=== PATIENT | female | born 1940 | race Caucasian/White ===

== ENCOUNTER 2022-07-01 18:56 | Emergency (ER) | payer MEDICARE, SELFPAY ==
[2022-07-01] VITALS (10 sets, daily range): BP systolic 114–136; BP diastolic 68–86; PULSE 64–126; RESP 16–28; TEMP 36.8; O2SAT 96–100
--- NOTE | ~2022-07-01 | CT_ITS ---
EXAMINATION: CT brain wo con DATE: 07/01/2022 20:20 INDICATION: dizziness . TECHNIQUE: Computed tomography (CT) of the head was performed without intravenous contrast. The mA wa s adjusted according to patient size. Iterative reconstruction technique was employed. The dose-lengt h product was 605.33 mGy-cm. COMPARISON: None. FINDINGS: No acute intracranial hemorrhage or extra-axial fluid collection. No hydrocephalus, mass, or herniation. No acute ischemic infarct. Unremarkable dural venous sinus attenuation. No acute osseous abnormality. The aerated spaces are clear. Moderate atrophy and chronic white matter change. Atherosclerotic intracranial calcification. Focal b ilateral old basal ganglia lacunar infarcts. Focal old right pontine infarct. Bilateral lens replacem ents. IMPRESSION: No acute intracranial process. Reviewed, dictated and finalized at location K.
--- NOTE | ~2022-07-01 | CT_ITS ---
EXAMINATION: CT abdomen pelvis w con DATE: 07/01/2022 20:27 INDICATION: abdominal pain TECHNIQUE: Computed tomography (CT) of the abdomen and pelvis was performed with 100 mL Omnipaque-350 intravenous contrast. Automated exposure control and iterative reconstruction technique were employe d. The dose-length product was 226.62 mGy-cm. COMPARISON: None. FINDINGS: Lower thorax: Emphysematous/senescent changes. Liver: Cyst or hemangioma along the falciform ligament. Biliary/Gallbladder: Gallbladder is normal. No bile duct dilation. Pancreas: Prominent pancreatic duct. Mild atrophy. Field bile duct mild intra and active hepatic duct dilation Spleen: Normal. Adrenals:No mass. Kidneys: Right nephrolithiasis. Bilateral cortical thinning and scarring. Simple left lower pole cyst . GI tract: No small or large bowel dilation. Normal appendix. Diverticulosis without diverticulitis. Mesentery/Peritoneum: No ascites, mass, or free air. Retroperitoneum: No mass. Atherosclerotic abdominal aortic and/or arterial calcifications. 4.1 cm fus iform infrarenal abdominal aortic aneurysm, with intramural ulcerative thrombus. Pelvis: Pelvic organs partially obscured by metal artifact. Uterus likely surgically absent. Soft Tissues: Mild body wall edema Bones: No acute osseous finding. Uncomplicated appearing left hip arthroplasty. IMPRESSION: Mild intrahepatic and extra hepatic bile duct dilation, correlate with biliary labs. 4.1 cm abdominal aortic aneurysm with intramural thrombus and penetrating ulcers. Reviewed, dictated and finalized at location K.
--- NOTE | ~2022-07-01 | XR_ITS ---
EXAMINATION: XR chest 2V Exam Date/Time: 07/01/2022 19:45 CDT HISTORY: SOB/cough, DIZZINESS Comparison: None available. RESULT: Lines, tubes, and devices: Left chest pacer with intact leads. Lungs and pleura: Biapical pleural scarring. Severe emphysematous and senescent change. Cardiomediastinal silhouette: Prominent central pulmonary arteries as can be seen with pulmonary art erial hypertension. Other: No acute osseous or upper abdominal finding. IMPRESSION: No acute cardiopulmonary process. Reviewed, dictated and finalized at location K.
--- NOTE | 2022-07-01 19:02 | ECG_ITS ---
Measurements Intervals [place] Rate: 130 P: [place]: 0 QRS: -31 QRSD: 91 T: 71 QT: 301 QTc: 443 Interpretive Statements ATRIAL FIBRILLATION WITH RAPID VENTRICULAR RESPONSE MARKED LEFT AXIS DEVIATION [QRS AXIS < -30] MODERATE ST DEPRESSION [0.05+ mV ST DEPRESSION] NO PREVIOUS ECG AVAILABLE FOR COMPARISON Electronically Signed On 07-02-2022 17:59:23 CDT by Elizabeth Salvador M.D.
[2022-07-01 19:52] LABS: Basophils Absolute Auto 0.1 K/mm3 (0.0-0.1); Basophils Percent Auto 0.7 % (0.2-1.2); Eosinophils Absolute Auto 0.1 K/mm3 (0-0.3); Hematocrit 36.4 % (37.0-47.0); Hemoglobin 11.6 g/dL (12.0-15.0); Immature Granulocyte Absolute 0.02 K/mm3 (0.00-0.031); Immature Granulocyte Percent A 0.3 % (0-0.5); Lymphocytes Absolute Auto 1.21 K/mm3 (0.9-3.2); Lymphocytes Percent Auto 17.1 % (18.3-44.2); Mean Corpuscular HGB Conc 31.9 g/dl (32-36); Mean Corpuscular Volume 100.6 fl (80-100); Mean Platelet Volume 9.5 fl (7.4-10.4); Monocytes Absolute Auto 0.6 K/mm3 (0.1-0.6); Monocytes Percent Auto 8.9 % (2.6-8.5); Platelet Count Result 148 k/mm3 (150-375); Red Blood Count 3.62 M/mm3 (4.2-5.4); Red Cell Distribution Width 13.4 % (11.5-14.5); White Blood Count 7.1 K/mm3 (4.5-10.0)
[2022-07-01 20:03] LABS: INR 1.2; Prothrombin Time 14.7 Seconds (11.1-14.7)
[2022-07-01 20:06] LABS: Alanine Aminotransferase 12 U/L (6-35); Albumin Level 3.9 g/dL (3.5-5.1); Alkaline Phosphatase 60 U/L (38-126); Anion Gap 4 mmol/L (8-16); Aspartate Amino Transferase 21 U/L (14-36); Bilirubin,Total 0.5 mg/dL (0.2-1.3); Blood Urea Nitrogen 19 mg/dL (7-17); Carbon Dioxide 28 mmol/L (22-30); Chloride 105 mmol/L (98-107); Estimated CRCL calculation 34 ml/min; Estimated Glomerular Filt Rate > 60; Glucose 95 mg/dL (65-110); Lipase 79 U/L (23-300); Potassium 4.1 mmol/L (3.4-5.0); Sodium 137 mmol/L (137-145)
[2022-07-01] MEDS: SODIUM CHLORIDE 0.9% IV 1,000 ML 150 ML IV CONT (20:09)
[2022-07-01 20:22] LABS: Appearance Urine Cloudy (Clear); Bacteria Urine Rare /hpf; Bilirubin Urine Negative (Negative); Blood Urine Negative (Negative); Color Urine Yellow (Yellow); Glucose Urine UA Negative (Negative); Ketones Urine Negative (Negative); Leukocyte Esterase Ur 2+ LEU/UL (Negative); Nitrate Urine Negative (Negative); Non Pathogenic Casts 0-2; Protein Urine Negative (Negative); Specific Grav Ur 1.014 (1.001-1.035); Squamous Epithelial Cell Urine Many /hpf (Few); WBC Urine 21-50 /hpf
[2022-07-01 20:30] LABS: Add Urine Microscopic? YES
[2022-07-01 20:31] LABS: D Dimer 0.79 ug/mL (<0.48)
--- NOTE | 2022-07-01 21:20 | ED.DIZZY ---
HPI - Dizziness General Chief Complaint: Dizziness Stated Complaint: dizzy/weak/abd pain/SOB Time Seen by Provider: 07/01/22 19:24 Source: patient and family Mode of arrival: ambulatory Limitations: no limitations History of Present Illness HPI Narrative: 82-year-old with a history of A-fib on Eliquis s/p pacemaker here with complaints of dizziness which has been ongoing for past 4 weeks. Patient states every morning when she gets up she gets dizzy followed by nausea and abdominal pain. She is denies any vomiting or diarrhea. No history of fever or chills. She denies any chest pain. MD elicited complaint: dizziness Onset (ago): week(s) (4-5 ) Timing: gradual onset Severity: moderate Description: lightheadedness Context: change in body position Relieving factors: nothing Associated symptoms: nausea Related Data Allergies Allergy/AdvReac Type Severity Reaction Status Date / Time codeine AdvReac Unknown Nausea and Verified 12/28/15 12:31 Vomiting Review of Systems Review of Systems: All systems reviewed & are unremarkable except as noted in HPI and below Constitutional: Constitutional: Reports no additional constitutional complaints Eyes: Eyes: Reports no additional eye complaints ENT: Reports system reviewed and no additional complaints, except as documented Cardiovascular: Cardiovascular: Reports no additional cardiovascular complaints Respiratory: Respiratory: Reports no additional respiratory complaints Gastrointestinal: Gastrointestinal: Reports as per HPI Musculoskeletal: Musculoskeletal: Reports no additional musculoskeletal complaints Neurologic: Reports as per HPI Exam Narrative: GENERAL: Well-appearing, thin and frail, and in no acute distress. HEAD: Normocephalic, atraumatic. EYES: PERRLA and EOMI. ENT: Nares clear, no rhinorrhea or epistaxis. Mucous membranes moist. NECK: Supple. CHEST: Clear to auscultation. No respiratory distress. HEART: Tachycardic. ABDOMEN: Soft, nontender, nondistended, pulsatile mass, normal active bowel sounds. EXTREMITIES: Normal range of motion. No edema. SKIN: Warm, dry, no rash. NEURO: No focal deficits. Alert and oriented x3. PSYCH: Normal mood and affect. Course Course Emergency Course: Notified patient and the family about her lab work, CT scan findings. I discussed with vascular surgery at [place] Dr. Abbott who looked at the CT report images, patient does not need immediate surgery or intervention. Can be followed up in the office or in the ER.I did give the pt an option of going to the ER or follow up in the office . i recommended her to follow with Dr. Bonds Vital Signs Vital signs: Vital Signs Temperature 36.8 C 07/01/22 19:06 Pulse Rate 126 H 07/01/22 19:06 Respiratory Rate 18 07/01/22 19:06 Blood Pressure 114/68 07/01/22 19:06 Pulse Oximetry 96 07/01/22 19:06 Oxygen Delivery Room Air 07/01/22 19:06 Temperature 36.8 C 07/01/22 19:06 Pulse Rate 120 H 07/01/22 20:58 Respiratory Rate 22 H 07/01/22 20:45 Blood Pressure 114/68 07/01/22 19:06 Pulse Oximetry 100 07/01/22 20:45 Oxygen Delivery Room Air 07/01/22 19:06 MDM - Dizziness MDM Narrative Medical decision making narrative: 82-year-old with a history of A-fib s/p pacemaker 4 to 5-week history of dizziness mostly in the morning associated with mild nausea and abdominal pain will do CT of the head and abdomen and lab work and EKg Differential Diagnosis Differential diagnosis: Likely benign paroxysmal positional vertigo, vertebral basilar insufficiency and cerebrovascular accident Lab Data 07/01/22 19:45 07/01/22 19:45 Labs: Lab Results 07/01/22 07/01/22 07/01/22 Range/Units 19:45 19:45 19:45 WBC 7.1 (4.5-10.0) K/mm3 RBC 3.62 L (4.2-5.4) M/mm3 Hgb 11.6 L (12.0-15.0) g/dL Hct 36.4 L (37.0-47.0) % MCV 100.6 H (80-100) fl MCH 32.0 (26-34) pg MCHC 31.9 L (32-36) g/dl RDW 13.4 (11
== END 2022-07-01 22:44 | disposition home or self-care (01) ==
PROVIDERS: Emergency Medicine; Emergency Provider Family Medicine; PCP Family Medicine Sports Medicine
DX: I71.43 Infrarenal abdominal aortic aneurysm, without rupture (principal); R42 Dizziness and giddiness; I48.91 Unspecified atrial fibrillation; Z95.0 Presence of cardiac pacemaker; Z79.01 Long term (current) use of anticoagulants; R94.31 Abnormal electrocardiogram [ECG] [EKG]; R93.2 Abnormal findings on diagnostic imaging of liver and biliary tract; R82.998 Other abnormal findings in urine
CPT/HCPCS: 36415; 70450; 71046; 74177; 80053; 81001; 83690; 85025; 85380; 85610; 87086; 87088; 93005; 96360; 96361; 99284; J7030; Q9967

== ENCOUNTER 2022-07-21 15:03 | Outpatient (CLI) | payer MEDICARE, SELFPAY ==
--- NOTE | ~2022-07-21 | CT_ITS ---
EXAMINATION: CT abdomen pelvis w con DATE: 07/21/2022 16:02 INDICATION: Intra and extra hepatic biliary ductal dilation TECHNIQUE: Computed tomography (CT) of the abdomen and pelvis was performed with 100 mL Omnipaque-350 intravenous contrast. Automated exposure control and iterative reconstruction technique were employe d. The dose-length product was 253.38 mGy-cm. COMPARISON: 07/01/2022 FINDINGS: Emphysema the lung bases. Calcified nodule right middle lobe consistent with old granulomatous diseas e. Heart size is normal. No pericardial or pleural effusion. Dual lead cardiac pacemaker with lead ti ps at the right atrial appendage and at the apex of the right ventricle. Unchanged 1.5 cm low-attenua tion cyst versus hemangioma along the ligamentum teres. Common bile duct measures up to 7-8 mm in max imal diameter which is within normal limits for age. No intrahepatic biliary ductal dilation. Small a mount of gas and fluid within a duodenal diverticulum arising from second portion duodenum posterior to the distalmost common bile duct. Gallbladder, spleen, pancreas, bilateral adrenal glands are macrina l. Again seen are regions of cortical scarring at both kidneys. 1-2 mm nonobstructing stone at an upp er pole calyx of the right kidney. There is also a 1.1 cm low-attenuation cyst at the lower pole of t he left kidney. Portions of the inferior pelvis are obscured by metallic streak artifact related to a left total hip arthroplasty. Visualized portion of the decompressed bladder is unremarkable. The yeison armando is not identified and has likely been surgically resected. There are scattered colonic diverticul osis without adjacent inflammatory stranding to suggest diverticulitis. No bowel obstruction. Normal appendix. No free intraperitoneal gas or fluid. No pathologically enlarged abdominal or pelvic lympha denopathy. Fusiform infrarenal abdominal aortic aneurysm measuring up to 4.4 x 3.9 cm in maximal diam eter measured orthogonal to the axis of flow on coronal and sagittal images respectively. Moderate lo wer lumbar spondylosis. IMPRESSION: 1. Common bile duct measures up to 7-8 mm in maximal diameter which is within normal limits for age. No intrahepatic biliary ductal dilation. 2. 4.4 x 3.9 cm fusiform infrarenal abdominal aortic aneurysm. 3. Question 2 mm nonobstructing stone in upper pole calyx of the right kidney. Reviewed, dictated and finalized at location B. IMPRESSION: 1. Common bile duct measures up to 7-8 mm in maximal diameter which is within n ormal limits for age. No intrahepatic biliary ductal dilation. 2. 4.4 x 3.9 cm fusiform infrarenal abdominal aortic aneurysm. 3. Question 2 mm nonobstructing stone in upper pole calyx of the right kidney.
== END 2022-07-21 15:04 | disposition home or self-care (01) ==
PROVIDERS: PCP Family Medicine Sports Medicine; Visit Provider Nurse Practitioner
DX: R19.8 Other specified symptoms and signs involving the digestive system and abdomen (principal); I71.40 Abdominal aortic aneurysm, without rupture, unspecified
CPT/HCPCS: 74177; Q9967

== ENCOUNTER 2022-07-30 06:46 | Day surgery (SDC) | payer MEDICARE, SELFPAY ==
[2022-07-23 14:23] VITALS: BMI 16.5
[2022-07-30 09:53] VITALS: BP 165/91; PULSE 81; RESP 18; TEMP 36.3; O2SAT 99; BMI 16.1
[2022-07-30] MEDS: LACTATED RINGERS 1,000 ML 150 ML IV CONT (10:06)
--- NOTE | 2022-07-30 10:20 | WPDANESEPPF ---
Anes - Initial Pre Proc Eval Procedure: Operation Date: 07/30/22 11:00 Proposed Procedures p Esophagogastroduodenoscopy - Eliesre Madden MD Date/Time: 07/30/22 10:20 Surgeon: Elieser Madden MD Pre Op Diagnosis: RUQP, nausea Patient Data Age: 82 Gender: F Height: 1.68 m Weight: 45.3 kg Last Vital Signs Temp 97.4 F L 07/30/22 09:53 Pulse 81 07/30/22 09:53 Resp 18 07/30/22 09:53 BP 165/91 H 07/30/22 09:53 Pulse Ox 99 07/30/22 09:53 O2 Del Method Room Air 07/30/22 09:53 Allergies Allergy/AdvReac Type Severity Reaction Status Date / Time codeine AdvReac Intermediate Nausea and Verified 07/30/22 09:51 Vomiting Home Medications Medication Instructions Recorded Confirmed Type apixaban 5 mg tablet 5 mg PO BID 07/07/22 07/30/22 History denosumab 60 mg/mL subcutaneous 60 mg subcut [id number] 07/07/22 07/30/22 History syringe (Prolia) ondansetron 4 mg disintegrating 4 mg PO Q8H PRN Nausea And Vomiting 07/07/22 07/30/22 History tablet sertraline 25 mg tablet 25 mg PO DAILY 07/07/22 07/30/22 History sotalol 80 mg tablet 40 mg PO BID 07/07/22 07/30/22 History wgnhef-ctopjlvk-tpoxpsr 2 cap PO .COMPLEX #240 caps 07/15/22 07/30/22 Rx 36,000-114,000-180,000 unit capsule,delay rel (Creon) metoprolol tartrate 25 mg tablet 25 mg PO BID 07/23/22 07/30/22 History Patient hx anesthesia problems: none Family hx anesthesia problems: none Results Review: All pre-operative results and documents have been reviewed as part of the pre-operative evaluation. 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 DAY PAST 1-2 YRS Alcohol intake: current Substance use: former Living arrangements: with family Spiritual care concerns: No Anes - Eval Final PreProcedure Day of Procedure 07/30/22 10:20 Patient weight: normal Heart: regular rate and rhythm Lungs: clear to auscultation Airway: Mallampati scale class II Neurological: alert and oriented Last oral intake: >/= 8 hours ASA classification: III Emergent: no Anesthetic plan: proceed Anesthesia type and monitoring: general GIVS and standard monitoring Results Review: All pre-operative results and documents have been reviewed as part of the pre-operative evaluation. Informed Consent: The patient's anesthetic plan and its attendant risks and benefits were discussed with the patient/family/POA. Questions were solicited and answers provided to the satisfaction of the patient/family/POA.
--- NOTE | 2022-07-30 10:46 | WPDHPUPDATE1 ---
History and Physical Update Update Date/Time: 07/30/22 10:46 History and Physical has been reviewed, including an updated exam of the patient. There are NO changes in the patient's condition. Risks, benefits, and alternatives have been discussed and questions answered. Patient agrees to proceed with procedure.
[2022-07-30 11:00] VITALS: BP 119/68; PULSE 80; RESP 17; O2SAT 94
[2022-07-30 11:10] VITALS: BP 126/74; PULSE 75; RESP 23; O2SAT 99
[2022-07-30 11:20] VITALS: BP 148/86; PULSE 80; RESP 21; O2SAT 99
== END 2022-07-30 11:30 | disposition home or self-care (01) ==
PROVIDERS: PCP Family Medicine Sports Medicine; Visit Provider Internal Medicine Gastroenterology
PROC: 0DJ08ZZ Inspection of Upper Intestinal Tract, Via Natural or Artificial Opening Endoscopic (ICD-10-PCS; CPT 43235; principal; 2022-07-30 11:00)
DX: K44.9 Diaphragmatic hernia without obstruction or gangrene (principal); K29.70 Gastritis, unspecified, without bleeding; I71.40 Abdominal aortic aneurysm, without rupture, unspecified; I48.91 Unspecified atrial fibrillation; F41.8 Other specified anxiety disorders; I10 Essential (primary) hypertension; Z86.73 Personal history of transient ischemic attack (TIA), and cerebral infarction without residual deficits; Z95.0 Presence of cardiac pacemaker; Z79.01 Long term (current) use of anticoagulants; Z79.620 Long term (current) use of immunosuppressive biologic; F17.210 Nicotine dependence, cigarettes, uncomplicated
CPT/HCPCS: 43235; 87081; 88305; J2704; J7120

== ENCOUNTER 2022-08-07 10:50 | Emergency (ER) | payer MEDICARE, SELFPAY ==
--- NOTE | ~2022-08-07 | CT_ITS ---
EXAMINATION: CT abdomen pelvis w con DATE: 08/07/2022 11:55 INDICATION: Recent ulcers. Diffuse lower abdominal pain and tenderness. TECHNIQUE: Computed tomography (CT) of the abdomen and pelvis was performed with 98 cc Omnipaque 350 intravenous contrast. The dose-length product was 185.86 mGy-cm. Automated exposure control and iterative reconstruction technique were employed. COMPARISON: CT dated 07/21/2022. FINDINGS: Lung bases are unremarkable. No significant pleural or pericardial effusion. Heart size is normal. There is hepatomegaly. The spleen, pancreas, adrenal glands are unremarkable. There is bilate ral renal cortical thinning. There is a nonobstructing 4 mm right renal stone. Gallbladder is present . There is a left hip arthroplasty. 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 There is moderate lumba r spondylosis with retrolisthesis at L4-5. There is a fusiform infrarenal abdominal aortic aneurysm m easuring 4.5 x 3.7 cm. No free air or free fluid. No lymphadenopathy. IMPRESSION: 1. Infrarenal abdominal aortic aneurysm measuring 4.5 x 3.7 cm. 2: Nonobstructing right nephrolithiasis. Reviewed, dictated and finalized at location L.
[2022-08-07 11:02] VITALS: BP 143/78; PULSE 70; RESP 16; TEMP 36.8; O2SAT 98
--- NOTE | 2022-08-07 11:08 | ED.ABDPAIN ---
HPI - Abdominal Pain General Chief Complaint: Abdominal Pain Stated Complaint: abd pain Time Seen by Provider: 08/07/22 11:00 History of Present Illness HPI narrative: Patient is an 82-year-old female with a history of AAA and gastric ulcers seen on recent EGD here for evaluation of abdominal pain x2 months. Patient states the pain is described as a soreness in her lower abdomen. Reports some nausea but no vomiting. Has been seen by GI and had an endoscopy done not too long ago that showed 3 gastric ulcers. She has been taking her omeprazole for the past week but states that her pain has not improved much. Presents today due to chronicity of symptoms. No dysuria, urgency or frequency. Related Data Home Medications Medication Instructions Recorded Confirmed apixaban 5 mg tablet 5 mg PO BID 07/07/22 07/30/22 denosumab 60 mg/mL subcutaneous 60 mg subcut [id number] 07/07/22 07/30/22 syringe (Prolia) ondansetron 4 mg disintegrating 4 mg PO Q8H PRN Nausea And Vomiting 07/07/22 07/30/22 tablet sertraline 25 mg tablet 25 mg PO DAILY 07/07/22 07/30/22 sotalol 80 mg tablet 40 mg PO BID 07/07/22 07/30/22 metoprolol tartrate 25 mg tablet 25 mg PO BID 07/23/22 07/30/22 Allergies Allergy/AdvReac Type Severity Reaction Status Date / Time codeine AdvReac Intermediate Nausea and Verified 07/30/22 09:51 Vomiting Review of Systems Review of Systems: Gen.: Denies fevers or chills Eyes: Denies eye pain or visual change ENT: Denies congestion Respiratory: Denies shortness of breath or cough CV: Denies chest pain or palpitations GI: Reports abdominal pain denies burning, urgency, frequency or hematuria Musculoskeletal: Denies back pain or muscle pain Neuro: Denies numbness, tingling, weakness or focal weakness Skin: Denies rash Except as documented, all other systems reviewed and negative [facility] Past Medical History Medical History AAA (abdominal aortic aneurysm) without rupture Afib Depression with anxiety Dilation of biliary tract Fatigue Hx of stroke associated with blood clotting tendency 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 DAY PAST 1-2 YRS Alcohol intake: current Substance use: former Living arrangements: with family Spiritual care concerns: No Exam Narrative: APPEARANCE: Well appearing, no pain in distress, well-nourished. Head: Normocephalic and atraumatic. EYES: PERRLA/EOMI, conjunctivae clear NOSE: No nasal drainage EARS: External ear normal in appearance THROAT: Oropharynx is clear. Mucous membranes are moist. NECK: Supple. No adenopathy, no masses. RESPIRATORY: Airway patent, respirations nonlabored. Clear to auscultation bilaterally, no rales, rhonchi, wheezing. CARDIOVASCULAR: Regular rate and rhythm without murmurs, rubs, or gallops. ABDOMINAL: There is no abdominal tenderness on exam. No rebound or guarding. MUSCULOSKELETAL: Extremities are warm and well-perfused. Moves all extremities well. No edema. NEURO: Normal speech. No focal neurologic deficits. SKIN: Skin is warm and dry. No rashes. PSYCHIATRIC: Normal affect/mood.. Course Vital Signs Vital signs: Vital Signs Temperature 98.3 F 08/07/22 11:02 Pulse Rate 70 08/07/22 11:02 Respiratory Rate 16 08/07/22 11:02 Blood Pressure 143/78 H 08/07/22 11:02 Pulse Oximetry 98 08/07/22 11:02 Oxygen Delivery Room Air 08/07/22 11:02 Temperature 98.3 F 08/07/22 11:02 Pulse Rate
[2022-08-07] MEDS: BELLADONNA ALK/PHENOB ELIX 10 ML, MAG HYDROX/ALUMINUM HYD/SIMETH 30 ML, LIDOCAINE HCL 2... PO (11:23)
[2022-08-07 11:26] LABS: Basophils Absolute Auto 0.1 K/mm3 (0.0-0.1); Basophils Percent Auto 0.8 % (0.2-1.2); Eosinophils Absolute Auto 0.1 K/mm3 (0-0.3); Hematocrit 37.3 % (37.0-47.0); Immature Granulocyte Absolute 0.03 K/mm3 (0.00-0.031); Immature Granulocyte Percent A 0.5 % (0-0.5); Lymphocytes Absolute Auto 1.06 K/mm3 (0.9-3.2); Lymphocytes Percent Auto 16.3 % (18.3-44.2); Mean Corpuscular HGB Conc 32.2 g/dl (32-36); Mean Corpuscular Hemoglobin 31.6 pg (26-34); Mean Corpuscular Volume 98.2 fl (80-100); Mean Platelet Volume 10.1 fl (7.4-10.4); Monocytes Absolute Auto 0.6 K/mm3 (0.1-0.6); Monocytes Percent Auto 8.7 % (2.6-8.5); Neutrophils Absolute Auto 4.7 K/mm3 (1.3-6.7); Neutrophils Percent Auto 71.7 % (45.5-73.1); Platelet Count Result 173 k/mm3 (150-375); Red Cell Distribution Width 14.2 % (11.5-14.5); White Blood Count 6.5 K/mm3 (4.5-10.0)
[2022-08-07 11:30] VITALS: BP 177/92; PULSE 81; O2SAT 97
[2022-08-07 11:31] LABS: Lactic Acid Reflex 0.9 mmol/L (0.7-2.0)
[2022-08-07 11:33] LABS: Alanine Aminotransferase 13 U/L (6-35); Albumin Level 3.8 g/dL (3.5-5.1); Alkaline Phosphatase 56 U/L (38-126); Anion Gap 3 mmol/L (8-16); Aspartate Amino Transferase 24 U/L (14-36); Bilirubin,Total 0.4 mg/dL (0.2-1.3); Blood Urea Nitrogen 24 mg/dL (7-17); Calcium 8.5 mg/dL (8.4-10.2); Carbon Dioxide 32 mmol/L (22-30); Chloride 102 mmol/L (98-107); Estimated CRCL calculation 33 ml/min; Estimated Glomerular Filt Rate > 60; Glucose 103 mg/dL (65-110); Lipase 116 U/L (23-300); Potassium 4.1 mmol/L (3.4-5.0); Sodium 137 mmol/L (137-145)
[2022-08-07 12:15] VITALS: BP 135/67; PULSE 80; O2SAT 99
[2022-08-07 13:00] VITALS: BP 159/82; PULSE 80; RESP 18; O2SAT 97
== END 2022-08-07 13:02 | disposition home or self-care (01) ==
PROVIDERS: Emergency Provider Physician Assistant; PCP Family Medicine Sports Medicine
DX: K29.70 Gastritis, unspecified, without bleeding (principal); I71.43 Infrarenal abdominal aortic aneurysm, without rupture; I48.91 Unspecified atrial fibrillation; I10 Essential (primary) hypertension; E07.9 Disorder of thyroid, unspecified; F41.8 Other specified anxiety disorders; F17.210 Nicotine dependence, cigarettes, uncomplicated; Z95.0 Presence of cardiac pacemaker; Z86.73 Personal history of transient ischemic attack (TIA), and cerebral infarction without residual deficits; N20.0 Calculus of kidney
CPT/HCPCS: 36415; 74177; 80053; 83605; 83690; 85025; 99284; A9270; Q9967

== ENCOUNTER 2022-10-07 21:43 | Emergency (ER) | payer MEDICARE, SELFPAY ==
--- NOTE | ~2022-10-07 | XR_ITS ---
EXAMINATION: XR chest 2V Exam Date/Time: 10/07/2022 22:00 CDT HISTORY: SOB Comparison: 07/01/2022. RESULT: Lines, tubes, and devices: Left chest pacer with intact leads. Lungs and pleura: Severe emphysematous change, biapical pleural scarring, otherwise clear. Cardiomediastinal silhouette: Stable. Other: No acute osseous or upper abdominal finding. IMPRESSION: No acute cardiopulmonary process. Reviewed, dictated and finalized at location K.
[2022-10-07 21:40] VITALS: BP 173/97; PULSE 91; RESP 18; TEMP 36.5; O2SAT 99
--- NOTE | 2022-10-07 21:44 | ECG_ITS ---
Measurements Intervals [place] Rate: 84 P: 90 OR: 218 QRS: -40 QRSD: 94 T: 55 QT: 372 QTc: 441 Interpretive Statements ELECTRONIC ATRIAL PACEMAKER LEFT AXIS DEVIATION CANNOT RULE OUT SEPTAL INFARCT, AGE INDETERMINATE BASELINE ARTIFACT- I, III, AVL, AVF, V6 ABNORMAL ECG COMPARED TO ECG 07/01/2022 19:15:23 MYOCARDIAL INFARCT FINDING NOW PRESENT Electronically Signed On 10-08-2022 6:51:41 CDT by Aston Sparrow D.O.
[2022-10-07 22:12] LABS: Basophils Absolute Auto 0.1 K/mm3 (0.0-0.1); Basophils Percent Auto 0.8 % (0.2-1.2); Eosinophils Absolute Auto 0.2 K/mm3 (0-0.3); Eosinophils Percent Auto 3.1 % (0-4.4); Hematocrit 37.6 % (37.0-47.0); Hemoglobin 12.1 g/dL (12.0-15.0); Immature Granulocyte Absolute 0.02 K/mm3 (0.00-0.031); Immature Granulocyte Percent A 0.3 % (0-0.5); Lymphocytes Percent Auto 19.9 % (18.3-44.2); Mean Corpuscular HGB Conc 32.2 g/dl (32-36); Mean Corpuscular Hemoglobin 31.8 pg (26-34); Mean Corpuscular Volume 98.9 fl (80-100); Monocytes Absolute Auto 0.8 K/mm3 (0.1-0.6); Monocytes Percent Auto 10.4 % (2.6-8.5); Neutrophils Absolute Auto 4.9 K/mm3 (1.3-6.7); Neutrophils Percent Auto 65.5 % (45.5-73.1); Platelet Count Result 183 k/mm3 (150-375); Red Cell Distribution Width 13.3 % (11.5-14.5); White Blood Count 7.5 K/mm3 (4.5-10.0)
[2022-10-07 22:23] LABS: Alanine Aminotransferase 19 U/L (6-35); Albumin Level 3.9 g/dL (3.5-5.1); Alkaline Phosphatase 62 U/L (38-126); Anion Gap 4 mmol/L (8-16); Aspartate Amino Transferase 31 U/L (14-36); Bilirubin,Total 0.5 mg/dL (0.2-1.3); Blood Urea Nitrogen 23 mg/dL (7-17); Calcium 9.1 mg/dL (8.4-10.2); Carbon Dioxide 33 mmol/L (22-30); Chloride 101 mmol/L (98-107); Estimated CRCL calculation 33 ml/min; Estimated Glomerular Filt Rate > 60; Glucose 98 mg/dL (65-110); Potassium 3.4 mmol/L (3.4-5.0); Sodium 138 mmol/L (137-145)
[2022-10-07 22:49] LABS: NT Pro B Type Natriuretic Pept 1330 pg/mL (19.9-100); Troponin I < 0.012 ng/mL (0.000-0.034)
--- NOTE | 2022-10-07 23:05 | PC.NURSE ---
Report given to JAMISON Phillips
[2022-10-07 23:58] VITALS: BP 123/78; PULSE 94; RESP 16; O2SAT 95
[2022-10-08 01:17] LABS: Troponin I < 0.012 ng/mL (0.000-0.034)
--- NOTE | 2022-10-08 01:24 | ED.GENADULT ---
HPI - General Adult General Chief complaint: Shortness of Breath/Dyspnea Stated complaint: DIFFICULTY IN BREATHING Time Seen by Provider: 10/07/22 22:07 History of Present Illness HPI narrative: Patient 82-year-old female who presents emergency department with chief complaint of shortness of breath. Patient reports that this evening she started getting very short of breath EMS was called and they noticed the patient was having wheezing and they gave the patient a breathing treatment and gave her steroids prior to arrival in the emergency department upon arrival to the emergency department patient states she started to feel much better and reports that her symptoms have essentially resolved the patient denies chest pain reports that she has no peripheral edema Related Data Home Medications Medication Instructions Recorded Confirmed apixaban 5 mg tablet 5 mg PO BID 07/07/22 07/30/22 denosumab 60 mg/mL subcutaneous 60 mg subcut [id number] 07/07/22 07/30/22 syringe (Prolia) ondansetron 4 mg disintegrating 4 mg PO Q8H PRN Nausea And Vomiting 07/07/22 07/30/22 tablet sertraline 25 mg tablet 25 mg PO DAILY 07/07/22 07/30/22 sotalol 80 mg tablet 40 mg PO BID 07/07/22 07/30/22 metoprolol tartrate 25 mg tablet 25 mg PO BID 07/23/22 07/30/22 Allergies Allergy/AdvReac Type Severity Reaction Status Date / Time codeine AdvReac Intermediate Nausea and Verified 07/30/22 09:51 Vomiting Review of Systems Review of Systems: A 10 system review of systems was completed on the patient and is negative except for what is stated in the HPI. Nursing and ancillary documentation was reviewed. [facility] Past Medical History Medical History AAA (abdominal aortic aneurysm) without rupture Afib Depression with anxiety Dilation of biliary tract Fatigue Hx of stroke associated with blood clotting tendency Hypertension [facility] current use of anticoagulant Nausea Pacemaker Pancreatic atrophy Postherpetic neuralgia RUQ pain Shortness of breath Thyroid disorder Weight loss Social History Social History Smoking packs per day: 0.5 Smoking cigarettes per day: 10.0 Years smoked: 60 Smoking pack-years: 30.00 Smoking status: Current every day smoker Tobacco type: cigarettes Additional smoking assessment comments: HAS SMOKED 3 CIG. DAY PAST 1-2 YRS Alcohol intake: current Substance use: former Living arrangements: with family Spiritual care concerns: No Exam Narrative: GENERAL: Well-appearing, well-nourished, and in no acute distress. HEAD: Normocephalic, atraumatic. EYES: PERRLA and EOMI. ENT: Nares clear, no rhinorrhea or epistaxis. Mucous membranes moist. NECK: Supple. CHEST: Clear to auscultation. No respiratory distress. HEART: Regular rate and rhythm. No murmur heard. Normal peripheral pulses. ABDOMEN: Soft, nontender, nondistended, normal active bowel sounds. EXTREMITIES: Normal range of motion. No edema. SKIN: Warm, dry, no rash. NEURO: No focal deficits. Alert and oriented x3. PSYCH: Normal mood and affect. Course Vital Signs Vital signs: Vital Signs Temperature 36.5 C 10/07/22 21:40 Pulse Rate 91 10/07/22 21:40 Respiratory Rate 18 10/07/22 21:40 Blood Pressure 173/97 H 10/07/22 21:40 Pulse Oximetry 99 10/07/22 21:40 Oxygen Delivery Room Air 10/07/22 21:40 Temperature 36.5 C 10/07/22 21:40 Pulse Rate 94 10/07/22 23:58 Respiratory Rate 16 10/07/22 23:58 Blood Pressure 123/78 10/07/22 23:58 Pulse Oximetry 95 10/07/22 23:58 Oxygen Delivery Room Air 10/07/22 21:53 Medical Decision Making [facility] Narrative Medical decision making narrative: Differential diagnosis includes ACS, hypertensive crisis, COPD exacerbation, bronchospasm, pneumonia, pneumothorax EKG shows paced rhythm no st elevation or st depression Labo
[2022-10-08 01:53] VITALS: BP 140/82; PULSE 82; RESP 16; O2SAT 96
== END 2022-10-08 01:55 | disposition home or self-care (01) ==
PROVIDERS: Emergency Provider Emergency Medicine; PCP Family Medicine Sports Medicine
DX: J98.01 Acute bronchospasm (principal); R06.00 Dyspnea, unspecified; I48.91 Unspecified atrial fibrillation; I10 Essential (primary) hypertension; E07.9 Disorder of thyroid, unspecified; Z95.0 Presence of cardiac pacemaker; F41.8 Other specified anxiety disorders; Z86.73 Personal history of transient ischemic attack (TIA), and cerebral infarction without residual deficits; Z79.01 Long term (current) use of anticoagulants; F17.210 Nicotine dependence, cigarettes, uncomplicated; R94.31 Abnormal electrocardiogram [ECG] [EKG]
CPT/HCPCS: 36415; 71046; 80053; 83880; 84484; 85025; 93005; 99284

== ENCOUNTER 2023-11-08 12:06 | Inpatient (IN) | payer MEDICARE, SELFPAY ==
[2023-11-08] VITALS (26 sets, daily range): BP systolic 135–165; BP diastolic 80–117; PULSE 83–113; RESP 14–28; TEMP 36.7–37.6; O2SAT 90–100; BMI 17.2
--- NOTE | ~2023-11-08 | XR_ITS ---
EXAMINATION: XR chest 1V portable DATE: 11/08/2023 13:03 INDICATION: Cough and weakness TECHNIQUE: frontal view of the chest was obtained. COMPARISON: Chest radiograph dated 10/07/2022 FINDINGS: Again seen is hyperexpansion of the lungs. Unchanged mild right apical pleural-parenchymal scarring. Calcified nodules in the right lower lung zone consistent with old granulomatous disease. No other ai rspace opacities, pulmonary edema, pleural effusion or pneumothorax. The cardiomediastinal silhouette is normal. Dual lead pacemaker seen with leads projecting over the expected locations of the right a trium and right ventricle. IMPRESSION: 1. No acute cardiopulmonary disease. Reviewed, dictated and finalized at location A.
--- NOTE | ~2023-11-08 | CT_ITS ---
EXAMINATION: CT brain wo con DATE: 11/08/2023 13:27 INDICATION: Dizziness TECHNIQUE: Computed tomography (CT) of the head was performed without intravenous contrast. Sagittal and coronal reconstructions were performed. The mA was adjusted according to patient size. Iterative reconstruction technique was employed. The dose-length product was 605.33 mGy-cm. COMPARISON: head CT dated 07/01/22 FINDINGS: Again seen are old lacunar infarcts at the bilateral thalami, right caudate nucleus, left lentiform n ucleus, right corey and left frontal lobe raphael radiata. Additional small cortical infarct in the lef t frontal lobe. No acute intracranial hemorrhage, acute infarction or abnormal extra axial fluid bárbara ection. There is moderate scattered white matter hypoattenuation consistent with chronic small vessel ischemic disease. Symmetric prominence of the sulci consistent with mild age-appropriate diffuse cer ebral volume loss. Ventricles are normal and symmetric. No mass/mass effect. Changes of bilateral int raocular lens replacement. The orbits, paranasal sinuses and mastoid air cells are normal. IMPRESSION: 1. Stable appearance of multiple scattered small infarcts and moderate scattered white matter hypoatt enuation consistent with chronic small vessel ischemic disease. No acute intracranial process. Reviewed, dictated and finalized at location A. IMPRESSION: 1. Stable appearance of multiple scattered small infarcts and moderate scattere d white matter hypoattenuation consistent with chronic small vessel ischemic di sease. No acute intracranial process.
--- NOTE | 2023-11-08 12:36 | ECG_ITS ---
Test Date: 2023-11-08 12:15:17 Measurements Intervals [place] Rate: 106 P: 0 CO: 0 QRS: -43 QRSD: 86 T: 53 QT: 325 QTc: 432 Interpretive Statements ATRIAL FLUTTER/TACHYCARDIA WITH RAPID VENTRICULAR RESPONSE LEFT AXIS DEVIATION [QRS AXIS < -30] ANTEROSEPTAL MYOCARDIAL INFARCTION , OF INDETERMINATE AGE [40+ ms Q WAVE IN V1-V4] ABNORMAL ECG No previous ECG available for comparison Electronically Signed On 11-09-2023 10:52:09 CDT by Moris Hanson M.D.
--- NOTE | 2023-11-08 12:50 | ED.GENADULT ---
HPI - General Adult General Chief complaint: Weakness Stated complaint: weakness Time Seen by Provider: 11/08/23 12:15 History of Present Illness HPI narrative: Patient 83-year-old female presents emergency department chief complaint of generalized weakness. The patient reports that since Thursday she has been feeling very weak and has been unable to get up out of bed patient states that she has been lethargic has had reported a cough of the denies fever denies vomiting denies dysuria denies chest pain denies abdominal pain. Related Data Home Medications Medication Instructions Recorded Confirmed apixaban 5 mg tablet 5 mg PO BID 07/07/22 07/30/22 denosumab 60 mg/mL subcutaneous 60 mg subcut [id number] 07/07/22 07/30/22 syringe (Prolia) ondansetron 4 mg disintegrating 4 mg PO Q8H PRN Nausea And Vomiting 07/07/22 07/30/22 tablet sertraline 25 mg tablet 25 mg PO DAILY 07/07/22 07/30/22 sotalol 80 mg tablet 40 mg PO BID 07/07/22 07/30/22 metoprolol tartrate 25 mg tablet 25 mg PO BID 07/23/22 07/30/22 Allergies Allergy/AdvReac Type Severity Reaction Status Date / Time codeine AdvReac Intermediate Nausea and Verified 11/08/23 12:17 Vomiting Review of Systems Review of Systems: A 10 system review of systems was completed on the patient and is negative except for what is stated in the HPI. Nursing and ancillary documentation was reviewed. [facility] Past Medical History Medical History AAA (abdominal aortic aneurysm) without rupture Afib Depression with anxiety Dilation of biliary tract Fatigue Hx of stroke associated with blood clotting tendency Hypertension MCC current use of anticoagulant Nausea Pacemaker Pancreatic atrophy Postherpetic neuralgia RUQ pain Shortness of breath Thyroid disorder Weight loss Social History Social History Smoking packs per day: 0.5 Smoking cigarettes per day: 10.0 Years smoked: 60 Smoking pack-years: 30.00 Smoking status: Current every day smoker Tobacco type: cigarettes Additional smoking assessment comments: HAS SMOKED 3 CIG. DAY PAST 1-2 YRS Alcohol intake: current Substance use: former Living arrangements: with family Spiritual care concerns: No Course Vital Signs Vital signs: Vital Signs Temperature 36.7 C 11/08/23 12:09 Pulse Rate 92 11/08/23 12:09 Respiratory Rate 20 11/08/23 12:09 Blood Pressure 165/89 H 11/08/23 12:09 Pulse Oximetry 95 11/08/23 12:09 Oxygen Delivery Room Air 11/08/23 12:09 Temperature 36.7 C 11/08/23 12:09 Pulse Rate 103 H 11/08/23 12:14 Respiratory Rate 20 11/08/23 12:09 Blood Pressure 165/89 H 11/08/23 12:09 Pulse Oximetry 95 11/08/23 12:09 Oxygen Delivery Room Air 11/08/23 12:09 Medical Decision Making MDM Narrative Medical decision making narrative: Differential diagnosis includes pneumonia, UTI, electrolyte abnormality, dehydration, viral syndrome, COVID-19, influenza, RSV Laboratory studies were obtained on the patient showed a normal CBC white count of 5.0 electrolytes did not show any significant abnormalities BNP was a 1920 troponin was 0.018 procalcitonin 0.1 urinalysis showed no evidence UTI COVID was positive Chest x-ray showed no focal infiltrate EKG showed no acute ischemic changes CT head showed no acute abnormality Attempts were made to ambulate the patient she is unable to walk and a any form of distance the patient lives by herself and takes care of herself. The case was discussed with the hospitalist as the patient is currently unable to provide her ADLs. Vital Signs Vital Signs: Vital Signs Temperature 36.7 C 11/08/23 12:09 Pulse Rate 92 11/08/23 12:09 Respiratory Rate 20 11/08/23 12:09 Blood Pressure 165/89 H 11/08/23 12:09 Pulse Oximetry 95 11/08/23 12:09 Oxygen Delivery Room Air
[2023-11-08 13:16] LABS: Basophils Percent Auto 0.6 % (0.2-1.2); Eosinophils Percent Auto 0.8 % (0-4.4); Hematocrit 38.8 % (37.0-47.0); Hemoglobin 12.4 g/dL (12.0-15.0); Immature Granulocyte Absolute 0.01 K/mm3 (0.00-0.031); Immature Granulocyte Percent A 0.2 % (0-0.5); Immature Platelet Fraction Pct 2.8 % (0.9-11.2); Lymphocytes Absolute Auto 0.85 K/mm3 (0.9-3.2); Lymphocytes Percent Auto 17.1 % (18.3-44.2); Mean Corpuscular Hemoglobin 32.2 pg (26-34); Mean Corpuscular Volume 100.8 fl (80-100); Mean Platelet Volume 10.1 fl (7.4-10.4); Monocytes Absolute Auto 1.1 K/mm3 (0.1-0.6); Monocytes Percent Auto 21.5 % (2.6-8.5); Neutrophils Percent Auto 59.8 % (45.5-73.1); Platelet Count Result 115 k/mm3 (150-375); Red Blood Count 3.85 M/mm3 (4.2-5.4)
[2023-11-08 13:25] LABS: Alanine Aminotransferase 11 U/L (6-35); Albumin Level 3.6 g/dL (3.5-5.1); Alkaline Phosphatase 78 U/L (38-126); Anion Gap 4 mmol/L (4-12); Aspartate Amino Transferase 27 U/L (14-36); Bilirubin,Total 0.2 mg/dL (0.2-1.3); Blood Urea Nitrogen 19 mg/dL (7-17); Calcium 8.9 mg/dL (8.4-10.2); Carbon Dioxide 33 mmol/L (22-30); Chloride 100 mmol/L (98-107); Estimated CRCL calculation 27 ml/min; Estimated Glomerular Filt Rate 53; Glucose 91 mg/dL (65-110); INR 1.2; Lactic Acid Reflex 1.2 mmol/L (0.7-2.0); Magnesium 1.6 mg/dL (1.6-2.3); Sodium 137 mmol/L (137-145)
[2023-11-08 13:26] LABS: Partial Thromboplastin Time 47.2 Seconds (22.3-36.8)
[2023-11-08 13:37] LABS: NT Pro B Type Natriuretic Pept 8920 pg/mL (19.9-100); Troponin I 0.018 ng/mL (0.000-0.034)
[2023-11-08 13:42] LABS: Procalcitonin 0.1 ng/mL
[2023-11-08 13:49] LABS: Anisocytosis 1+; Platelet Estimate Adequate (Adequate); Poikilocytosis 1+; Schistocytes None Seen
[2023-11-08 14:01] LABS: Influenza A QL RT-PCR Negative (Negative); Influenza B QL RT-PCR Negative (Negative); RSV RNA, RT-PCR Negative (Negative); SARS-CoV-2 RNA PCR Positive (Negative)
[2023-11-08] MEDS: MAGNESIUM SULF 2 GM/WATER 50ML 2 GM/50 ML BAG IVPB (14:15)
[2023-11-08 14:17] LABS: Add Urine Microscopic? YES; Appearance Urine Clear (Clear); Bacteria Urine None Seen /hpf; Bilirubin Urine Negative (Negative); Blood Urine Negative (Negative); Color Urine Yellow (Yellow); Glucose Urine UA Negative (Negative); Ketones Urine Negative (Negative); Leukocyte Esterase Ur Negative LEU/UL (Negative); Nitrate Urine Negative (Negative); Non Pathogenic Casts 0-2; Protein Urine 1+ mg/dL (Negative); RBC Urine 0-2 /hpf (0-2); Specific Grav Ur 1.016 (1.001-1.035); Squamous Epithelial Cell Urine None Seen /hpf (Few); WBC Urine 0-5 /hpf (0-3)
--- NOTE | 2023-11-08 15:25 | PM.IMHP ---
H&P: HPI History of Present Illness Date/Time: 11/08/23 15:25 Chief Complaint: Weakness. Narrative: This is an 83-year-old female with history of stroke and atrial fibrillation on chronic anticoagulation who presented to the emergency department via EMS from home for evaluation of weakness. The patient provides the following history. She has not been feeling well since Thursday with symptoms to include nonproductive cough, mild sore throat, generalized malaise, and weakness. Today she was so weak that she could not even get herself out of bed and she came in for evaluation. She has no known sick contacts and says that she does not leave the house much, typically only leaving 2 times a week to get her hair done and to go out to lunch. She denies fever, sinus congestion, hemoptysis, chest pain, pleuritic pain, nausea, vomiting, diarrhea, dysuria, and focal weakness. In the ED: She was afebrile on arrival. Blood pressures have been stable. Labs are significant for WBC count of 5.0, hemoglobin 12.4, sodium 137, BUN 19, creatinine 1.00, lactic acid 1.2. She tested positive for SARS-CoV-[address] and chest x-ray showed no acute findings. When she got to the floor, her SpO2 was 90% on room air and she is currently on 2 L nasal cannula. She was given 200 mg remdesivir IV and she is being admitted in this setting as she is too weak and it would not be safe for her to go home where she lives alone. Review of Systems Review of Systems: 12 systems were reviewed and are negative except for as per HPI. [facility] Past Medical History Medical History Abdominal aortic aneurysm without rupture Atrial fibrillation Chronic anticoagulation Depression with anxiety Hypertension Pancreatic atrophy Postherpetic neuralgia Surgical History Surgical History History of permanent cardiac pacemaker placement Family History Family History Other Family history non-contributory Social History Social History (Updated 11/08/23 @ 21:13 by Chiqui Jarquin PA-C) Social History: Healthcare power of regulatory attorney: Samantha Montoya, daughter. Code status: Do not resuscitate. Smoking packs per day: 0.5 Smoking cigarettes per day: 10.0 Years smoked: 60 Smoking pack-years: 30.00 Smoking status: Current every day smoker Tobacco type: cigarettes Alcohol intake: current Substance use: former Do You Feel Safe in your Home?: Yes Lack of Transportation: No Lack of Food: Never True Current Housing: I Have Housing Concerned About Future Housing: No Difficulty Paying Gas/Electric Bills: No Difficulty Paying for Meds: No Currently Unemployed: No Education: Associate Degree Difficulty w/ Childcare or Family Care: No Living arrangements: with family Spiritual care concerns: No Meds Home Medications and Allergies Home Medications Medication Instructions Recorded Confirmed Type apixaban 5 mg tablet 2.5 mg PO BID 07/07/22 11/08/23 History ondansetron 4 mg disintegrating 4 mg PO Q8H PRN Nausea And Vomiting 07/07/22 11/08/23 History tablet sotalol 80 mg tablet 40 mg PO Q12H 07/07/22 11/08/23 History omeprazole 40 mg capsule,delayed 40 mg PO .daily #30 caps 07/30/22 11/08/23 Rx release albuterol sulfate 90 mcg/actuation 2 puff inhalation QID PRN 10/08/22 11/08/23 Rx aerosol inhaler shortness of breath or wheezing #8.5 grams bupropion HCl 150 mg 24 hr tablet, 150 mg PO QAM 11/08/23 11/08/23 History extended release vit C 250 mg-vit E 90 mg-zinc 40 See Rx Instructions .Route .COMPLEX 11/08/23 11/08/23 History mg-copper 1 [id number] capsule (PreserVision AREDS-2) Allergies Allergy/AdvReac Type Severity Reaction Status Date / Time codeine AdvReac Intermediate Nausea and Verified 11/08/23 12:17 Vomiting Vital
--- NOTE | 2023-11-08 15:56 | ADMGEN ---
This patient, Neisha Fox, was admitted to Medical Room 242-. Patient/family oriented to hospital policies and general routines including ID bracelet, bed and alarms, visiting hours, pain management, procedures, bathroom and other care routines, personal items, smoking policy, room service/diet, and visiting hours. Information on how to activate the Rapid Response Team has been discussed. Patient/Family are encouraged to report perceived risks to care and to ask questions if they do not understand what they are told or what they should do.
[2023-11-08] MEDS: APIXABAN 2.5 MG TABLET PO (18:00)
[2023-11-08] MEDS: REMDESIVIR 200 MG/NS 250 ML 200 MG/250 ML BAG 150 MG IVPB (18:01)
[2023-11-08] MEDS: SOTALOL HCL 40 MG TABLET PO (20:54)
[2023-11-08] MEDS: BENZOCAINE/MENTHOL (*BKC) 18 EA LOZENGE 1 LOZENGE PO (21:34)
[2023-11-08] MEDS: dexAMETHasone 2 MG TABLET 6 MG PO (21:34)
[2023-11-08] MEDS: guaiFENesin 12 HR 600 MG TABCR PO (21:34)
[2023-11-09] VITALS (7 sets, daily range): BP systolic 109–120; BP diastolic 61–67; PULSE 80–81; RESP 16–18; TEMP 36.4–36.9; O2SAT 99–100; BMI 16.0
[2023-11-09 05:20] LABS: Hematocrit 39.6 % (37.0-47.0); Hemoglobin 12.7 g/dL (12.0-15.0); Immature Platelet Fraction Pct 3.6 % (0.9-11.2); Mean Corpuscular HGB Conc 32.1 g/dl (32-36); Mean Corpuscular Hemoglobin 31.9 pg (26-34); Mean Corpuscular Volume 99.5 fl (80-100); Mean Platelet Volume 10.4 fl (7.4-10.4); Platelet Count Result 110 k/mm3 (150-375); Red Blood Count 3.98 M/mm3 (4.2-5.4); Red Cell Distribution Width 13.8 % (11.5-14.5); White Blood Count 5.7 K/mm3 (4.5-10.0)
[2023-11-09 05:32] LABS: Anion Gap 7 mmol/L (4-12); Blood Urea Nitrogen 22 mg/dL (7-17); CRP 0.8 mg/dL (<1.0); Calcium 8.6 mg/dL (8.4-10.2); Carbon Dioxide 28 mmol/L (22-30); Chloride 99 mmol/L (98-107); Estimated CRCL calculation 30 ml/min; Estimated Glomerular Filt Rate 60; Glucose 108 mg/dL (65-110); Lactate Dehydrogenase 258 U/L (120-246); Potassium 4.2 mmol/L (3.4-5.0); Sodium 134 mmol/L (137-145)
[2023-11-09] MEDS: dexAMETHasone 2 MG TABLET 6 MG PO (08:22)
[2023-11-09] MEDS: APIXABAN 2.5 MG TABLET PO ×2 (08:22→16:59)
[2023-11-09] MEDS: buPROPion HCL XL (24 HR) 150 MG TABCR PO (08:22)
[2023-11-09] MEDS: PANTOPRAZOLE 40 MG TABLET PO (08:23)
[2023-11-09] MEDS: guaiFENesin 12 HR 600 MG TABCR PO ×2 (08:23→21:34)
[2023-11-09] MEDS: SOTALOL HCL 40 MG TABLET PO ×2 (08:24→21:35)
--- NOTE | 2023-11-09 10:18 | PM.IMPN ---
Progress Note: A&P Assessment and Plan (1) COVID: Code(s): U07.1 - COVID-19 Status: Acute Assessment and Plan: - No cardiopulmonary distress noted. - Good O2 sats > 90 % on 2L/NC. - Continue Remdesivir and dexamethasone. - PT eval and treatment. - Covid isolation precautions. - Supportive care. (2) Hypoxia: Code(s): R09.02 - Hypoxemia Status: Acute Assessment and Plan: - Likely related to above. - Currently good O2 sats on 2L/NC. - Wean O2 as benny to maintain sats > 90 %. (3) Generalized weakness: Code(s): R53.1 - Weakness Status: Acute Assessment and Plan: - Likely related to Covid infection. - PT eval and treatment. - Fall precautions. - Supportive care. (4) Atrial fibrillation: Code(s): I48.91 - Unspecified atrial fibrillation Status: Chronic Assessment and Plan: - A-Flutter with RVR on EKG. - Placed on tele. - Continue Sotalol and apixaban. (5) Chronic anticoagulation: Code(s): Z79.01 - terminologist (current) use of anticoagulants Status: Chronic Assessment and Plan: - Continue apixaban. - Bleeding precautions. Plan Diet: Heart Healthy. DVT PPx: Apixaban. Covid isolation precautions. Time Spent With Patient Time with patient: 25 - 35 minutes Subjective Date/time seen: 11/09/23 09:20 Interval history: Patient presented with increased generalized muscle weakness and noted to be Covid +ve. Pt unable to walk at home and leaves alone. Being treated for Covid and increased muscle weakness. Pt currently on bedrest in no cardiopulmonary distress. Stated getting up to bedside commode with assistance but can't walk by herself. States appetite is good and denies other distressful symptoms except weakness. Currently on 2L/NC to maintain sats > 90 %. Review of Systems Review of Systems: 12 systems were reviewed and are negative except for as per HPI. Exam Narrative: General: Well-developed, very pleasant elderly female. HEENT: PERRL, EOMI. Sclera anicteric. moist mucous membranes. Neck: Supple. Respiratory: Slightly coarse breath sounds. Cardiovascular: Regular rate and rhythm with S1-S2. Gastrointestinal: Abdomen is soft, nontender, and nondistended with positive bowel sounds. Skin: Warm and dry. No rash or lesions on limited exam. Extremities: No cyanosis, clubbing, or edema. Radial and pedal pulses 2+. Neurological: Alert. Cranial nerves 2-12 are grossly intact. No gross focal deficits to casual conversation. Psychiatric: Pleasant and cooperative with normal mood and affect. Judgment and insight intact. Objective Data Vital Signs Vital Signs: Vital Signs - 24 hr 11/08/23 12:09 11/08/23 12:14 11/08/23 12:11 Temperature 98.0 F Pulse Rate 92 103 H 100 Respiratory Rate 20 20 Blood Pressure 165/89 H Pulse Oximetry 95 96 Oxygen Delivery Room Air Oxygen Flow Rate 11/08/23 12:15 11/08/23 12:16 11/08/23 12:30 Temperature Pulse Rate 113 H 107 H 95 Respiratory Rate 26 H 28 H 20 Blood Pressure 145/80 H Pulse Oximetry 97 Oxygen Delivery Oxygen Flow Rate 11/08/23 12:31 11/08/23 12:45 11/08/23 12:46 Temperature Pulse Rate 98 107 H 109 H Respiratory Rate 20 21 H 20 Blood Pressure 151/87 H 151/117 H Pulse Oximetry 99 97 Oxygen Delivery Oxygen Flow Rate 11/08/23 13:02 11/08/23 13:15 11/08/23 13:16 Temperature Pulse Rate 104 H 93 Respiratory Rate 21 H 20 Blood Pressure 144/91 H Pulse Oximetry 97 96 Oxygen Delivery Oxygen Flow Rate 11/08/23 13:48 11/08/23 14:09 11/08/23 14:15 Temperature Pulse Rate 113 H 105 H Respiratory Rate 21 H 14 Blood Pressure Pulse Oximetry 95 91 96 Oxygen Delivery Oxygen Flow Rate 11/08/23 14:16 11/08/23 14:30 11/08/23 14:31 Temperature Pulse Rate 102 H 93 103 H Respiratory Rate 20 24 H 21 H Blood Pressure 135/100 H 144/89 H Pulse Oximetry 97 93 94 Oxygen Delivery
[2023-11-09] MEDS: REMDESIVIR 100 MG/NS 250 ML 100 MG/250 ML BAG 250 MG IVPB (21:36)
[2023-11-10] VITALS (7 sets, daily range): BP systolic 100–129; BP diastolic 52–63; PULSE 71–89; RESP 17–22; TEMP 36.6–36.8; O2SAT 92–98
[2023-11-10 06:06] LABS: INR 1.2; Prothrombin Time 16.2 Seconds (11.1-14.7)
[2023-11-10 06:07] LABS: Alanine Aminotransferase 11 U/L (6-35); Albumin Level 3.1 g/dL (3.5-5.1); Alkaline Phosphatase 59 U/L (38-126); Aspartate Amino Transferase 33 U/L (14-36); Bilirubin,Total 0.2 mg/dL (0.2-1.3)
[2023-11-10] MEDS: APIXABAN 2.5 MG TABLET PO ×2 (09:05→17:21)
[2023-11-10] MEDS: buPROPion HCL XL (24 HR) 150 MG TABCR PO (09:05)
[2023-11-10] MEDS: guaiFENesin 12 HR 600 MG TABCR PO ×2 (09:05→20:55)
[2023-11-10] MEDS: PANTOPRAZOLE 40 MG TABLET PO (09:05)
[2023-11-10] MEDS: dexAMETHasone 2 MG TABLET 6 MG PO (09:05)
[2023-11-10] MEDS: SOTALOL HCL 40 MG TABLET PO ×2 (09:05→20:55)
--- NOTE | 2023-11-10 11:40 | PM.IMPN ---
Progress Note: A&P Assessment and Plan (1) COVID: Code(s): U07.1 - COVID-19 Status: Acute Assessment and Plan: - No acute cardiopulmonary distress noted. - Good O2 sats > 90 % on 2L/NC. - Continue Remdesivir and dexamethasone. - PT eval and treatment. - Covid isolation precautions. - Supportive care. (2) Hypoxia: Code(s): R09.02 - Hypoxemia Status: Acute Assessment and Plan: - Likely related to above. - Still on 2L/NC for sats > 90 %. - Wean O2 as benny to maintain sats > 90 %. (3) Generalized weakness: Code(s): R53.1 - Weakness Status: Acute Assessment and Plan: - Likely related to Covid infection. - PT eval and treatment. - Fall precautions. - Supportive care. (4) Atrial fibrillation: Code(s): I48.91 - Unspecified atrial fibrillation Status: Chronic Assessment and Plan: - A-Flutter with RVR on EKG. - Rate well controlled. - Continue tele monitoring. - Continue Sotalol and apixaban. (5) Chronic anticoagulation: Code(s): Z79.01 - termination clerk (current) use of anticoagulants Status: Chronic Assessment and Plan: - Continue apixaban. - Bleeding precautions. Plan Diet: Heart Healthy. DVT PPx: Apixaban. Covid isolation precautions. Time Spent With Patient Time with patient: 25 - 35 minutes Subjective Date/time seen: 11/10/23 11:40 Interval history: Patient presented with increased generalized muscle weakness and noted to be Covid +ve. Pt unable to walk at home and states was having difficulty getting off the bed. She's being treated for Covid and increased muscle weakness. Pt currently on bedrest and states she's still feeling weak and can't make it to the bathroom by herself. Patient still on 2L/NC to maintain sats > 90 %. Review of Systems Review of Systems: 12 systems were reviewed and are negative except for as per HPI. Exam Narrative: General: Fragile elderly lady with generalized muscle weakness. HEENT: PERRL, EOMI. Sclera anicteric. moist mucous membranes. Neck: Supple. Respiratory: Coarse breath sounds. Cardiovascular: Regular rate and rhythm with S1-S2. Gastrointestinal: Abdomen is soft, nontender, and nondistended with positive bowel sounds. Skin: Warm and dry. No rash or lesions on limited exam. Extremities: No cyanosis, clubbing, or edema. Radial and pedal pulses 2+. Neurological: Alert. Cranial nerves 2-12 are grossly intact. No gross focal deficits to casual conversation. Psychiatric: Pleasant and cooperative with normal mood and affect. Judgment and insight intact. Objective Data Vital Signs Vital Signs: Vital Signs - 24 hr 11/09/23 14:00 11/09/23 20:37 11/09/23 21:35 Temperature 98.5 F 98.2 F Pulse Rate 81 80 80 Respiratory Rate 16 17 Blood Pressure 120/61 119/67 Pulse Oximetry 99 100 Oxygen Delivery Oxygen Flow Rate Fraction of Inspired Oxygen 11/09/23 21:30 11/10/23 04:59 11/10/23 08:22 Temperature 98.3 F Pulse Rate 73 Respiratory Rate 17 Blood Pressure 129/63 Pulse Oximetry 100 92 98 Oxygen Delivery Nasal Cannula Nasal Cannula Oxygen Flow Rate 2 2 Fraction of Inspired Oxygen 28 11/10/23 09:05 11/10/23 08:00 Temperature Pulse Rate 73 Respiratory Rate Blood Pressure Pulse Oximetry 98 Oxygen Delivery Nasal Cannula Oxygen Flow Rate 2 Fraction of Inspired Oxygen Intake/Output Intake/Output: Intake & Output 11/07/23 11/08/23 11/09/23 11/10/23 23:59 23:59 23:59 23:59 Intake Total 1080 390 Output Total 200 Balance -200 1080 390 Meds/Results Medications: Active Medications Generic Name Dose Route Start Last Admin Trade Name Freq PRN Reason Stop Dose Admin Acetaminophen 650 mg 11/08/23 15:03 Acetaminophen 325 Mg Tablet PO Q4H PRN Mild Pain (1-3) or Fever Albuterol 2 puff 11/08/23 16:20 Albuterol Sulfate (*Sp) Aerosol 1 Puff INHALATION QIDRT PRN Shortness Of
[2023-11-10] MEDS: REMDESIVIR 100 MG/NS 250 ML 100 MG/250 ML BAG 250 MG IVPB (21:02)
[2023-11-11] VITALS (7 sets, daily range): BP systolic 113–142; BP diastolic 69–79; PULSE 83–93; RESP 16–17; TEMP 36.9; O2SAT 95–100
[2023-11-11] MEDS: buPROPion HCL XL (24 HR) 150 MG TABCR PO (08:33)
[2023-11-11] MEDS: dexAMETHasone 2 MG TABLET 6 MG PO (08:33)
[2023-11-11] MEDS: APIXABAN 2.5 MG TABLET PO ×2 (08:33→17:01)
[2023-11-11] MEDS: PANTOPRAZOLE 40 MG TABLET PO (08:33)
[2023-11-11] MEDS: guaiFENesin 12 HR 600 MG TABCR PO ×2 (08:33→21:05)
[2023-11-11] MEDS: SOTALOL HCL 40 MG TABLET PO ×2 (08:33→21:06)
--- NOTE | 2023-11-11 13:20 | PM.IMPN ---
Progress Note: A&P Assessment and Plan (1) COVID: Code(s): U07.1 - COVID-19 Status: Acute Assessment and Plan: - Stable oxygenation. - Remains on 2L supp. O2. - Day 4 remdesivir and dexamethasone. - PT to cont. eval/treat. - Covid isolation precautions. - Supportive care. (2) Hypoxia: Code(s): R09.02 - Hypoxemia Status: Acute Assessment and Plan: - Maintain sats >= 90%. - Stable and doing well. No hx of O2 need. Hx of remote smoking noted. (3) Generalized weakness: Code(s): R53.1 - Weakness Status: Acute Assessment and Plan: - Presume 2/2 to acute illness, will continue with therapy services. - Appreciate care coordination continuing to follow to guide disposition. (4) Atrial fibrillation: Code(s): I48.91 - Unspecified atrial fibrillation Status: Chronic Assessment and Plan: - A-Flutter with RVR on EKG. - Rate well controlled at 83 this am. - Continue tele monitoring. - Continue Sotalol and apixaban. Apixaban at 2.5mg bid d/t age, weight. (5) Chronic anticoagulation: Code(s): Z79.01 - shelter (current) use of anticoagulants Status: Chronic Assessment and Plan: - Continue apixaban. - Bleeding precautions. (6) Constipation: Code(s): K59.00 - Constipation, unspecified Status: Acute Assessment and Plan: - Start miralax today. Plan Neisha Fox is an 83 year old female who presents with acute hypoxic resp. failure secondary to covid infection. She is currently day 4 of 5 on remdesivir with stable oxygenation and physical examination. Diet: Heart Healthy. DVT PPx: Apixaban. Covid isolation precautions. Time Spent With Patient Time with patient: 25 - 35 minutes Subjective Date/time seen: 11/11/23 13:20 Interval history: Neisha states she feels that she is breathing easily today. She does note not having any recent bowel movements and would prefer to get a laxative . Review of Systems Review of Systems: GI: Feels constipated. Denies abd. pain. Negative across all systems with the exception of what is mentioned elsewhere in this note. Exam Narrative: GENERAL APPEARANCE: Appears to be in no acute distress. HEAD: normocephalic atraumatic EYES: PERRL, EOMI. Vision grossly intact. ENT: Hearing grossly intact, no nasal discharge NECK: Neck supple, trachea midline. CARDIAC: Normal S1/S2. Rhythm is regular. No murmurs, rubs, or gallops. No cyanosis or pallor. Extremities are warm and well perfused. LUNGS: Clear to auscultation without rales, rhonchi, wheezing or diminished breath sounds. Respirations even and unlabored. ABDOMEN: BS positive x 4 quadrants. Soft, nondistended, nontender. No guarding or rebound. MSK: No joint tenderness/swelling, fair strength in all extremities. PERIPHERAL VASCULAR: Peripheral pulses palpable. Normal perfusion, cap refill <2 seconds. No edema. NEURO: Follows commands. No focal deficits. SKIN: [place] without lesions or eruptions. PSYCH: Stable, no paranoia or delusional thinking. Objective Data Vital Signs Vital Signs: Vital Signs - 24 hr 11/10/23 14:00 11/10/23 20:25 11/10/23 20:55 Temperature 98.1 F 97.8 F Pulse Rate 89 87 71 Respiratory Rate 22 H 17 Blood Pressure 100/52 L 109/53 L Pulse Oximetry 96 98 Oxygen Delivery Oxygen Flow Rate 11/10/23 20:55 11/11/23 05:27 11/11/23 08:33 Temperature 98.5 F Pulse Rate 83 83 Respiratory Rate 17 Blood Pressure 113/69 Pulse Oximetry 98 95 Oxygen Delivery Nasal Cannula Oxygen Flow Rate 1 11/11/23 08:00 Temperature Pulse Rate Respiratory Rate Blood Pressure Pulse Oximetry 95 Oxygen Delivery Nasal Cannula Oxygen Flow Rate 2 Intake/Output Intake/Output: Intake & Output 11/08/23 11/09/23 11/10/23 11/11/23 23:59 23:59 23:59 23:59 Intake Total 1080 870 390 Output Total 200 200 300 Balance -200 1080 670 90 Meds/Results Me
[2023-11-11] MEDS: REMDESIVIR 100 MG/NS 250 ML 100 MG/250 ML BAG 250 MG IVPB (21:06)
[2023-11-12] VITALS (10 sets, daily range): BP systolic 121–144; BP diastolic 77–83; PULSE 76–101; RESP 17–20; TEMP 36.6–37; O2SAT 95–100
[2023-11-12 06:05] LABS: Hematocrit 39.6 % (37.0-47.0); Hemoglobin 12.7 g/dL (12.0-15.0); Mean Corpuscular HGB Conc 32.1 g/dl (32-36); Mean Corpuscular Hemoglobin 31.4 pg (26-34); Mean Platelet Volume 10.8 fl (7.4-10.4); Platelet Count Result 148 k/mm3 (150-375); Red Blood Count 4.04 M/mm3 (4.2-5.4); Red Cell Distribution Width 13.4 % (11.5-14.5); White Blood Count 6.8 K/mm3 (4.5-10.0)
[2023-11-12 06:12] LABS: INR 1.3; Prothrombin Time 16.1 Seconds (11.1-14.7)
[2023-11-12 06:33] LABS: Alanine Aminotransferase 12 U/L (6-35); Albumin Level 3.3 g/dL (3.5-5.1); Alkaline Phosphatase 67 U/L (38-126); Anion Gap 5 mmol/L (4-12); Aspartate Amino Transferase 31 U/L (14-36); Bilirubin,Total 0.2 mg/dL (0.2-1.3); Blood Urea Nitrogen 31 mg/dL (7-17); Calcium 8.6 mg/dL (8.4-10.2); Carbon Dioxide 33 mmol/L (22-30); Chloride 98 mmol/L (98-107); Estimated CRCL calculation 25 ml/min; Estimated Glomerular Filt Rate 53; Glucose 87 mg/dL (65-110); Magnesium 1.6 mg/dL (1.6-2.3); Potassium 4.3 mmol/L (3.4-5.0); Sodium 136 mmol/L (137-145)
--- NOTE | 2023-11-12 07:25 | PM.IMPN ---
Progress Note: A&P Assessment and Plan (1) COVID: Code(s): U07.1 - COVID-19 Status: Acute Assessment and Plan: - Stable oxygenation. -weaned to room air - Day 5 remdesivir and dexamethasone. - PT to cont. eval/treat. Recommending home health. - Covid isolation precautions. - Supportive care. (2) Hypoxia: Code(s): R09.02 - Hypoxemia Status: Acute Assessment and Plan: - Maintain sats >= 90%. - Stable and doing well. No hx of O2 need. Hx of remote smoking noted. (3) Generalized weakness: Code(s): R53.1 - Weakness Status: Acute Assessment and Plan: - Presume 2/2 to acute illness, will continue with therapy services. - Appreciate care coordination continuing to follow to guide disposition. (4) Atrial fibrillation: Code(s): I48.91 - Unspecified atrial fibrillation Status: Chronic Assessment and Plan: - A-Flutter with RVR on EKG. - Rate well controlled at 83 this am. - Continue tele monitoring. - Continue Sotalol and apixaban. Apixaban at 2.5mg bid d/t age, weight. (5) Chronic anticoagulation: Code(s): Z79.01 - senior care (current) use of anticoagulants Status: Chronic Assessment and Plan: - Continue apixaban. - Bleeding precautions. (6) Constipation: Code(s): K59.00 - Constipation, unspecified Status: Acute Assessment and Plan: - Start miralax today. Plan Neisha Fox is an 83 year old female who presents with acute hypoxic resp. failure secondary to covid infection. She is currently day 4 of 5 on remdesivir with stable oxygenation and physical examination. Diet: Heart Healthy. DVT PPx: Apixaban. Covid isolation precautions. Subjective Date/time seen: 11/12/23 07:25 Interval history: This is an 83-year-old female with history of stroke and atrial fibrillation on chronic anticoagulation who presented to the emergency department via EMS from home for evaluation of weakness. The patient provides the following history. She has not been feeling well since Thursday with symptoms to include nonproductive cough, mild sore throat, generalized malaise, and weakness. 11/10: No acute events overnight. She is set to receive her last dose of remdesivir tonight. This morning she has been wean from oxygen and is on room air. She still states that she feels puny. She has a persistent congested, nonproductive cough. She has been walking with therapy up to 90 ft. She is agreeable to home health at discharge. Review of Systems Review of Systems: All systems reviewed & are unremarkable except as noted in HPI and below Exam Narrative: General: Appears unwell, frail, appears stated age. HEENT: normocephalic, atraumatic. Mucous membranes moist. EOMI, PERRLA, bilateral sclera anicteric, no conjunctival injection. Neck supple without JVD, lymphadenopathy, or bruit. Respiratory: clear and diminished auscultation bilaterally. No rales/rhonic/wheezes. Cardiovascular: Regular rate and rhythm, normal S1-S2 upon auscultation. No murmurs, rubs, or clicks. PMI is nondisplaced, capillary refill less than 3 second. Abdomen: Soft, round, no pulsatile masses, nondistended and nontender. No rebound, no guarding. No CVA tenderness, no hepatosplenomegaly. Bowel sounds present to all four quadrants. No high pitch or tinkling sounds, resonant to percussion. Extremities: No cyanosis, clubbing, or edema present. Pulses are palpable 2/2. Active ROM to all four extremities. Neuro: Alert and orientated x 4. PERRLA. Cranial nerves 2-12 intact without focal deficit. Skin: Warm, dry, and intact, without rash, erythema, or lesion. Lines: Incisions: Psych: pleasant, cooperative, normal speech, normal affect, no hallucinations, no dysarthria Objective Data Vital Signs Vital Signs: Vital Signs - 24 hr 11/11/23 08:33 11/11/23 08:00 11/11/23 13:52 Temperature 98.4 F Pulse Rate 83 93 Respiratory Ra
[2023-11-12] MEDS: SOTALOL HCL 40 MG TABLET PO ×2 (09:13→21:18)
[2023-11-12] MEDS: APIXABAN 2.5 MG TABLET PO ×2 (09:13→17:38)
[2023-11-12] MEDS: guaiFENesin 12 HR 600 MG TABCR PO ×2 (09:13→21:18)
[2023-11-12] MEDS: PANTOPRAZOLE 40 MG TABLET PO (09:13)
[2023-11-12] MEDS: dexAMETHasone 2 MG TABLET 6 MG PO (09:14)
[2023-11-12] MEDS: buPROPion HCL XL (24 HR) 150 MG TABCR PO (09:14)
--- NOTE | 2023-11-12 13:07 | PCPTNOTE ---
Patient declined treatment this session due to not feeling well today. Patient reported she has been having increase fatigue this date and did not want to do therapy at this time. RN aware. Patient reported she has been ambulating to the bathroom with nursing.
[2023-11-12] MEDS: REMDESIVIR 100 MG/NS 250 ML 100 MG/250 ML BAG 250 MG IVPB (21:18)
[2023-11-13 04:39] VITALS: BP 152/91; PULSE 81; RESP 18; TEMP 36.7; O2SAT 97
[2023-11-13 06:09] LABS: Basophils Percent Auto 0.2 % (0.2-1.2); Eosinophils Percent Auto 0.1 % (0-4.4); Hematocrit 41.2 % (37.0-47.0); Hemoglobin 13.3 g/dL (12.0-15.0); Immature Granulocyte Absolute 0.03 K/mm3 (0.00-0.031); Immature Granulocyte Percent A 0.3 % (0-0.5); Lymphocytes Absolute Auto 1.11 K/mm3 (0.9-3.2); Mean Corpuscular HGB Conc 32.3 g/dl (32-36); Mean Corpuscular Hemoglobin 30.9 pg (26-34); Mean Corpuscular Volume 95.6 fl (80-100); Mean Platelet Volume 10.6 fl (7.4-10.4); Monocytes Absolute Auto 1.1 K/mm3 (0.1-0.6); Monocytes Percent Auto 11.5 % (2.6-8.5); Neutrophils Percent Auto 75.9 % (45.5-73.1); Platelet Count Result 160 k/mm3 (150-375); Red Blood Count 4.31 M/mm3 (4.2-5.4); Red Cell Distribution Width 13.4 % (11.5-14.5); White Blood Count 9.3 K/mm3 (4.5-10.0)
[2023-11-13 06:24] LABS: Alanine Aminotransferase 12 U/L (6-35); Albumin Level 3.4 g/dL (3.5-5.1); Alkaline Phosphatase 75 U/L (38-126); Anion Gap 7 mmol/L (4-12); Aspartate Amino Transferase 30 U/L (14-36); Bilirubin,Total 0.5 mg/dL (0.2-1.3); Blood Urea Nitrogen 30 mg/dL (7-17); Calcium 8.7 mg/dL (8.4-10.2); Carbon Dioxide 33 mmol/L (22-30); Chloride 96 mmol/L (98-107); Estimated CRCL calculation 27 ml/min; Estimated Glomerular Filt Rate 60; Glucose 87 mg/dL (65-110); Potassium 4.1 mmol/L (3.4-5.0); Sodium 136 mmol/L (137-145)
[2023-11-13] MEDS: ONDANSETRON HCL ODT 4 MG TABLET PO (09:22)
--- NOTE | 2023-11-13 10:24 | PCNFU ---
Nutrition Follow-Up Complete: Underweight related to poor appetite as evidenced by patient report, BMI 16 goal: Adequate PO intake at least 75% meals and supplements We will continue current goal. Pt current nutrition is Regular with Nutritional Ice Cream BID. Last recorded weight is 41.4 kg, down from 43.8 kg on admit. Bowel Motility: No BM reported-nursing aware. Labs Reviewed:Na 136, Alb 3.4 Meds Noted:Eliquis, Dexamethasone, Protonix Skin: WNL Additional Notes: Patient remains on a regular diet with nutritional ice cream BID. Oral intake the past couple of days has been poor. Patient is COVID +. Nursing reporting nausea today-Zofran given. Agree with diet orders. PO intake encouraged. Monitoring intakes, weights, labs, supplement tolerance, plan of care Follow up in 5 days
[2023-11-13] MEDS: PANTOPRAZOLE 40 MG TABLET PO (11:15)
[2023-11-13] MEDS: buPROPion HCL XL (24 HR) 150 MG TABCR PO (11:15)
[2023-11-13 11:16] VITALS: PULSE 80
[2023-11-13] MEDS: APIXABAN 2.5 MG TABLET PO (11:16)
[2023-11-13] MEDS: dexAMETHasone 2 MG TABLET 6 MG PO (11:16)
[2023-11-13] MEDS: guaiFENesin 12 HR 600 MG TABCR PO (11:16)
[2023-11-13] MEDS: SOTALOL HCL 40 MG TABLET PO (11:16)
[2023-11-13] MEDS: ACETAMINOPHEN 325 MG TABLET 650 MG PO (11:17)
[2023-11-13 14:00] VITALS: BP 113/70; PULSE 96; RESP 18; TEMP 37; O2SAT 96
--- NOTE | 2023-11-13 14:56 | PM.DS ---
DS: Admitting Diagnosis Discharge Date 11/12 Admitting Diagnosis Weakness DS: Discharge Diagnosis Discharge Diagnosis (1) COVID: Code(s): U07.1 - COVID-19 Status: Acute Assessment and Plan: - Stable oxygenation. -weaned to room air - Day 5 remdesivir and dexamethasone. - PT to cont. eval/treat. Recommending home health. - Covid isolation precautions. - Supportive care. (2) Hypoxia: Code(s): R09.02 - Hypoxemia Status: Acute Assessment and Plan: - Maintain sats >= 90%. - Stable and doing well. No hx of O2 need. Hx of remote smoking noted. (3) Generalized weakness: Code(s): R53.1 - Weakness Status: Acute Assessment and Plan: - Presume 2/2 to acute illness, will continue with therapy services. - Appreciate care coordination continuing to follow to guide disposition. (4) Atrial fibrillation: Code(s): I48.91 - Unspecified atrial fibrillation Status: Chronic Assessment and Plan: - A-Flutter with RVR on EKG. - Rate well controlled at 83 this am. - Continue tele monitoring. - Continue Sotalol and apixaban. Apixaban at 2.5mg bid d/t age, weight. 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 - Bleeding precautions. (6) Constipation: Code(s): K59.00 - Constipation, unspecified Status: Acute Assessment and Plan: - Start miralax today. Jose Neisha Fox is an 83 year old female who presents with acute hypoxic resp. failure secondary to covid infection. She is currently day 4 of 5 on remdesivir with stable oxygenation and physical examination. Diet: Heart Healthy. DVT PPx: Apixaban. Covid isolation precautions. DS: Summary Hospital Course Reason for hospitalization: COVID Hospital Course: This is an 83-year-old female with history of stroke and atrial fibrillation on chronic anticoagulation who presented to the emergency department via EMS from home for evaluation of weakness. The patient provides the following history. She has not been feeling well since Thursday with symptoms to include nonproductive cough, mild sore throat, generalized malaise, and weakness. In the ED: She was afebrile on arrival. Blood pressures have been stable. Labs are significant for WBC count of 5.0, hemoglobin 12.4, sodium 137, BUN 19, creatinine 1.00, lactic acid 1.2. She tested positive for SARS-CoV-[address] and chest x-ray showed no acute findings. When she got to the floor, her SpO2 was 90% on room air and she is currently on 2 L nasal cannula. She was given 200 mg remdesivir IV and she is being admitted in this setting as she is too weak and it would not be safe for her to go home where she lives alone. Patient was admitted for conservative management of COVID with IV remdesivir. She initially required oxygen for hypoxia but was able to be weaned to room air. She worked with therapy and was able to ambulate 50-90 feet. She had persistent weakness and fatigue but did not want to go to SNF vs rehab. Overall she did well and was discharged in stable condition. Time Spent with Patient Time attestation: Total time spent providing and/or coordinating discharge services:65 Exam Narrative: General: Appears unwell, frail, appears stated age. HEENT: normocephalic, atraumatic. Mucous membranes moist. EOMI, PERRLA, bilateral sclera anicteric, no conjunctival injection. Neck supple without JVD, lymphadenopathy, or bruit. Respiratory: clear and diminished auscultation bilaterally. No rales/rhonic/wheezes. Cardiovascular: Regular rate and rhythm, normal S1-S2 upon auscultation. No murmurs, rubs, or clicks. PMI is nondisplaced, capillary refill less than 3 second. Abdomen: Soft, round, no pulsatile masses, nondistended and nontender. No rebound, no guarding. No CVA tenderness, no hepatosplenomegaly. Bowel s
== END 2023-11-13 16:25 | disposition home or self-care (01) | DRG 177 ==
LOC: ANHED 15:10 → ANH2MED 15:41
PROVIDERS: Nurse Practitioner Family; Physician Assistant; Admitting Provider General Practice; Emergency Provider Emergency Medicine; PCP Family Medicine Sports Medicine; Visit Provider Nurse Practitioner Acute Care
DX: U07.1 COVID-19 (principal); J96.01 Acute respiratory failure with hypoxia; I48.20 Chronic atrial fibrillation, unspecified; I48.92 Unspecified atrial flutter; B02.29 Other postherpetic nervous system involvement; K59.00 Constipation, unspecified; I71.40 Abdominal aortic aneurysm, without rupture, unspecified; I10 Essential (primary) hypertension; F41.8 Other specified anxiety disorders; E07.9 Disorder of thyroid, unspecified; Z66 Do not resuscitate; F17.210 Nicotine dependence, cigarettes, uncomplicated; Z79.01 Long term (current) use of anticoagulants; Z86.73 Personal history of transient ischemic attack (TIA), and cerebral infarction without residual deficits; Z95.0 Presence of cardiac pacemaker
CPT/HCPCS: 36415; 70450; 71045; 80048; 80053; 80076; 81001; 82728; 83605; 83615; 83735; 83880; 84145; 84484; 85025; 85027; 85055; 85610; 85730; 86140; 87637; 93005; 96374; 96375; 97110; 97161; 97530; 99285; A9270; G0378; J0248; J3475; J8540